=== PATIENT | male | born 1960 | race Caucasian/White ===

== ENCOUNTER 2021-12-08 23:00 | Emergency (ER) | payer BC ==
[2021-12-08] MEDS ORDERED: Aspirin 81 MG Tab.Chew PO ONE (23:07)
[2021-12-08] MEDS: Nitroglycerin 0.4 MG Tab.SL SL PRN ×2 (23:31→23:39)
[2021-12-08 23:57] LABS: BLOOD UREA NITROGEN,BUN 12 mg/dL (7.0-18.0); CARBON DIOXIDE,CO2 29.1 mmol/L (21.0-32.0); CHLORIDE,CL 100 mmol/L (98-107); GLUCOSE RANDOM 118 mg/dL (74-106); POTASSIUM,K 4.5 mmol/L (3.5-5.1); SODIUM,NA 137 mmol/L (136-148)
[2021-12-09] MEDS ORDERED: Iopamidol 755 MG/ML 500 ML Multipack Bottle IVPUSH STA (01:01)
[2021-12-09] MEDS ORDERED: Lisinopril 10 MG Tab PO ONE (03:41)
== END 2021-12-09 05:48 | disposition home or self-care (01) ==
LOC: MW.ED 23:00
DX: K80.20 Calculus of gallbladder without cholecystitis without obstruction (principal)
CPT/HCPCS: 36415; 71045; 71275; 74174; 76705; 80053; 84484; 85025; 85610; 85730; 93005; 99285; A9270; Q9967

== ENCOUNTER 2021-12-14 06:31 | Day surgery (SDC) | payer BC, MEDICAID ==
[~2021-12-14 06:31] MED LIST: Lactated Ringers 1,000 ML IV SCH; ceFAZolin 2 GM in Premix Bag 1 BAG IV ONE
[2021-12-14] MEDS ORDERED: Morphine 2 MG/ML SYRINGE IVPUSH PRN (07:15)
[2021-12-14] MEDS ORDERED: HYDROmorphone 1 MG/ML Syringe IVPUSH PRN (07:15)
[2021-12-14] MEDS ORDERED: Metoclopramide 10 MG/2 ML SDV IVPUSH PRN (07:15)
[2021-12-14] MEDS ORDERED: Albuterol 0.083% 2.5 MG/3 ML Neb Soln NEB PRN (07:15)
[2021-12-14] MEDS ORDERED: Naloxone 0.4 MG/ML SDV IVPUSH PRN (07:15)
[2021-12-14] MEDS ORDERED: fentaNYL 100 MCG/2 ML SDV IVPUSH PRN (07:15)
[2021-12-14] MEDS ORDERED: Ondansetron 4 MG/2 ML SDV IVPUSH PRN (07:15)
[2021-12-14] MEDS ORDERED: Octyl 2-Cyanoacrylate 1 Tube ONE (07:25)
[2021-12-14] MEDS ORDERED: Bupivacaine 25%/EPINEPHrine/PF 30 ML ONE (07:25)
[2021-12-14] MEDS ORDERED: Propofol 200 MG/20 ML SDV ONE ×2 (07:33→09:43)
[2021-12-14] MEDS ORDERED: fentaNYL 250 MCG/5 ML SDV ONE ×2 (07:33→08:43)
[2021-12-14] MEDS ORDERED: ceFAZolin 1 GM Vial ONE (09:18)
[2021-12-14] MEDS ORDERED: ePHEDrine 50 MG/ML SDV ONE (09:19)
[2021-12-14] MEDS ORDERED: Glycopyrrolate 0.2 MG/ML SDV ONE (09:19)
[2021-12-14] MEDS ORDERED: Ketorolac 30 MG/ML SDV ONE (09:19)
[2021-12-14] MEDS ORDERED: Sugammadex Sodium 200 MG/2 ML VIAL ONE (09:19)
[2021-12-14] MEDS ORDERED: Ondansetron 4 MG/2 ML SDV ONE (09:19)
[2021-12-14] MEDS ORDERED: Rocuronium Bromide 50 MG/5 ML Syringe ONE (09:19)
[2021-12-14] MEDS ORDERED: Dexamethasone 4 MG/ML 5 ML MDV ONE (09:19)
[2021-12-14] MEDS ORDERED: HYDROmorphone 2 MG/ML Syringe ONE (09:34)
[2021-12-14] MEDS ORDERED: Acetaminophen/oxyCODONE 325-5 MG Tab PO ONE (11:08)
== END 2021-12-14 12:32 | disposition home or self-care (01) ==
LOC: MW.SDS 06:31
PROVIDERS: ATTEND Surgery
DX: K80.12 Calculus of gallbladder with acute and chronic cholecystitis without obstruction (principal); K21.9 Gastro-esophageal reflux disease without esophagitis; E66.9 Obesity, unspecified; Z68.41 Body mass index [BMI] 40.0-44.9, adult
CPT/HCPCS: 47562; A9270; J0131; J0690; J1100; J1170; J1885; J2405; J2704; J3010; J3490; J7120; 00790